=== PATIENT | female | born 1975 | race Caucasian/White ===

== ENCOUNTER 2021-11-21 14:42 | Outpatient (REF) | payer OTHER, SELFPAY ==
--- NOTE | ~2021-11-21 | XR_ITS ---
EXAMINATION: XR ANKLE, RIGHT CLINICAL INFORMATION: Pain joints right ankle and foot. COMPARISON: Radiographs right foot 11/19/2016 TECHNIQUE: AP, lateral, and mortise views of the right ankle. FINDINGS: There is no fracture or dislocation or destructive process. The malleoli are intact and the ankle mortise is symmetric. There is no joint narrowing or erosive change. No osteochondral lesion demonstrated talar dome. The subtalar joint appears normal. The retrocalcaneal recess is preserved. XR/XR ankle RT min 3V IMPRESSION: Normal right ankle.
== END 2021-11-21 14:43 | disposition home or self-care (01) ==
LOC: HO.XRAY 14:42
PROVIDERS: PCP Internal Medicine; Visit Provider Student in an Organized Health Care Education/Training Program
DX: M25.571 Pain in right ankle and joints of right foot (principal)
CPT/HCPCS: 73610

== ENCOUNTER 2021-11-26 14:51 | Outpatient (REF) | payer OTHER, SELFPAY ==
--- NOTE | ~2021-11-26 | XR_ITS ---
EXAMINATION: XR CERVICAL SPINE CLINICAL INFORMATION: Degenerative disc disease COMPARISON: None TECHNIQUE: 5 views of the cervical spine were obtained. FINDINGS: There is mild 3 mm anterior subluxation of C3 with respect to C4. Bone alignment is otherwise normal. No fracture or dislocation is seen. There is degenerative spondylosis and degenerative disc disease at C5-C6 and C6-C7. There is right-sided neuroforaminal narrowing from bony osteophyte at C3-C5-C6. There is mild left-sided neuroforaminal narrowing from bony osteophyte at C3-C4 and C5-C6. Prevertebral soft tissues are normal. XR/XR cervical spine 4V IMPRESSION: Degenerative changes.
== END 2021-11-26 14:52 | disposition home or self-care (01) ==
LOC: HO.XRAY 14:51
PROVIDERS: PCP Internal Medicine; Visit Provider Student in an Organized Health Care Education/Training Program
DX: M50.30 Other cervical disc degeneration, unspecified cervical region (principal)
CPT/HCPCS: 72050

== ENCOUNTER 2022-12-02 15:22 | Outpatient (REF) | payer OTHER, SELFPAY ==
--- NOTE | ~2022-12-02 | XR_ITS ---
EXAMINATION: XR LUMBOSACRAL SPINE CLINICAL INFORMATION: Lower back pain. COMPARISON: None TECHNIQUE: AP and lateral views of the lumbar spine and lateral view of the lumbosacral junction. FINDINGS: The vertebral bodies and posterior elements are normal. The disc spaces are preserved and the vertebral alignment is normal. There is mild anterior spondylosis of the L4 and L5 upper endplates. A tiny limbus vertebra is seen anterior to the L5 upper endplate. The paraspinal soft tissues are normal. XR/XR lumbar spine 2-3V IMPRESSION: 1. No acute fracture or spondylolisthesis is seen. 2 the lumbar disc spaces are well-maintained. 3. There is mild anterior spondylosis of the L4 and L5 upper endplates.
== END 2022-12-02 15:23 | disposition home or self-care (01) ==
LOC: HO.XRAY 15:22
PROVIDERS: PCP Internal Medicine; Visit Provider Physical Medicine & Rehabilitation
DX: M54.50 Low back pain, unspecified (principal)
CPT/HCPCS: 72100

== ENCOUNTER 2022-12-12 17:58 | Outpatient (REF) | payer OTHER, SELFPAY ==
--- NOTE | ~2022-12-12 | MR_ITS ---
EXAMINATION: MR ANKLE WITHOUT CONTRAST, RIGHT CLINICAL INFORMATION: Right ankle pain. Tendinitis. COMPARISON: Most recent right ankle radiographs dated 11/21/2021. TECHNIQUE: Multisequence MR imaging of the right ankle was obtained without contrast on a high-field strength scanner. FINDINGS: BONE AND ARTICULAR CARTILAGE: No abnormal marrow signal. No evidence of acute osseous injury. No fracture or dislocation. No talar osteochondral lesion. Intact articular cartilage. ACHILLES TENDON: Trace fluid within the retrocalcaneal bursa, consistent with minimal bursitis. Minimal adjacent soft tissue edema, consistent with minimal peritendinitis. No measurable tendon tear. OTHER TENDONS: Intact. LIGAMENTS: Increased T2 signal within the deltoid ligament consistent with a grade 1 sprain/partial tear. JOINT FLUID AND SOFT TISSUES: Unremarkable. PLANTAR FASCIA: Intact. SINUS TARSI AND TARSAL TUNNEL: Patent. MR/MR ankle RT wo con IMPRESSION: 1. Minimal retrocalcaneal bursitis and minimal distal Achilles peritendinitis. No measurable tendon tear. 2. Grade 1 sprain/partial tear of the deltoid ligament. 3. No acute osseous abnormality.
== END 2022-12-12 17:59 | disposition home or self-care (01) ==
LOC: HO.MRI 17:58
PROVIDERS: PCP Internal Medicine; Visit Provider Physical Medicine & Rehabilitation
DX: M76.71 Peroneal tendinitis, right leg (principal)
CPT/HCPCS: 73721

== ENCOUNTER 2023-05-14 17:53 | Outpatient (REF) | payer OTHER, SELFPAY | END 2023-05-14 17:54 | disposition home or self-care (01) | LOC: HO.MRI 17:53 | PROVIDERS: PCP Internal Medicine; Visit Provider Physical Medicine & Rehabilitation | DX: Z13.89 Encounter for screening for other disorder (principal) ==

== ENCOUNTER 2023-10-24 14:52 | Outpatient (REF) | payer OTHER, SELFPAY ==
--- NOTE | ~2023-10-24 | XR_ITS ---
EXAMINATION: XR LUMBOSACRAL SPINE CLINICAL INFORMATION: Lumbar spondylosis without myelopathy. COMPARISON: Radiographs dated 12/02/2022. TECHNIQUE: AP and lateral views of the lumbar spine and lateral view of the lumbosacral junction. FINDINGS: Vertebral body heights and alignment are normal. The disc spaces are well-maintained. There is again mild anterior spondylosis of the L4 and L5 upper endplates. The present lateral views are somewhat limited by overlapping bowel contents. No fracture or dislocation is seen. The posterior elements are intact. The paravertebral soft tissues are unremarkable. XR/XR lumbar spine 2-3V IMPRESSION: 1. No acute fracture or spondylolisthesis is seen. 2. The lumbar disc spaces are well-maintained. 3. Again, there is mild anterior spondylosis of the L4 and L5 upper endplates.
== END 2023-10-24 14:53 | disposition home or self-care (01) ==
LOC: HO.XRAY 14:52
PROVIDERS: Visit Provider Physical Medicine & Rehabilitation
DX: M47.816 Spondylosis without myelopathy or radiculopathy, lumbar region (principal)
CPT/HCPCS: 72100

== ENCOUNTER 2024-07-22 14:24 | Outpatient (AMB) | payer OTHER, SELFPAY ==
--- NOTE | 2024-07-22 14:33 | A.OFFVIS_ITS ---
Vital Signs 07/22/24 14:38 Height 5 ft 8 in Weight 130 lb BMI 19.8 BP 116/68 Blood Pressure Location Rt brachial Position Sitting Pulse 101 H Pulse Source Pulse Oximeter Pulse Oximetry (%) 98 Oxygen Delivery Method Room Air Intake Visit Reasons: Chronic Right Ankle Pain Intake Note: Pain today 5/10 Medical Records Coordinator Required: No Accompanied by: Self / Same As Patient Allergies No Known Allergies Allergy (Verified 07/22/24 14:38) HPI HPI Chronic Right Ankle Pain: Details: Patient is a pleasant 49 years old female presents today for initial evaluation for chronic right ankle pain. She has long history of chronic neck, back, wrist and ankle pain and is currently in treatment for this at [facility]. She is interested to discuss treatments in our office for right ankle pain due to tendinitis as this was treated unsuccessfully at [facility] with physical therapy and injections. Patient reports she twisted her ankle in August 2021 which never healed completely. She bumped it a month ago which made it progressively worsening. Pain is localized to posterior, medial and lateral aspects of right ankle with mild swelling, decreased range of motion, mild allodynia, stiffness and soreness. Pain is constant and is rated at 5/10 today but worse with exertion. Patient reports seeing multiple Orthopedic providers, including [facility], [facility] and [facility] and was told no surgery. Patient was last evaluated by Dr. Patrick at [facility]. She was offered Curonix PNS at [facility] but would like to learn new treatments through our office. Patient reports worsening memory issues but has not had Neurology evaluation. She see Psychiatrist at [facility]. Patient reports good social support at home. Location: Right ankle pain Duration: Chronic pain since 09/01/21 Characteristics of symptom or complaint: Aching, dull, sore, hurting, heavy Aggravating or associated factors: Walking, weight bearing, standing, movements, heat applications Relieving factors: Ibuprofen, cold therapy, tramadol, elevation, rest Treatment: PT at [facility], cortisone injection, xrays/MRIs [facility] Medical History (Updated 07/23/24 @ 12:17 by CHRISTOPHER Graham) Other intervertebral disc disorders, lumbar region Mild cognitive impairment of uncertain or unknown etiology Schizophrenia, unspecified Other specified disorders of tendon, right ankle and foot Social History (Updated 07/22/24 @ 14:41 by Teresa Gibbons) Alcohol intake: never Patient Tobacco Use Status: Former Tobacco user Review of Systems Const All systems reviewed & are unremarkable except as noted in HPI and below Physical Exam Vital Signs: Last Vital Signs Pulse 101 H 07/22/24 14:38 BP 116/68 07/22/24 14:38 Pulse Ox 98 07/22/24 14:38 Oxygen Delivery Method Room Air 07/22/24 14:38 BMI result Body Mass Index 19.8 General: Appears afebrile. Alert and oriented. Mood and affect appropriate. Follows and participates in conversation appropriately. Respiratory effort is unlabored. No cough. Able to transition from sit to stand unassisted. Ambulates with bilaterally normal heel strike and toe off. Extrem General: Yes capillary refill normal, Yes no pedal edema, Yes no calf tenderness, No clubbing and No cyanosis Right lower extremity: ankle (Limited ROM due to pain, stiffness. Mild allodynia. ) Details: normal to inspection, tenderness Location: of the lateral malleolus, of the medial malleolus and posteriorly and swelling Details: diffusely; no unusual warmth, no ecchymosis and no crepitus Results Reviewed Results Reviewed: MR ANKLE WITHOUT CONTRAST, RIGHT 12/12/22 CLINICAL INFORMATION: Right ankle pain. Tendinitis. COMPARISON: Most recent right ankle radiographs dated 11/21/2021. TECHNIQUE: Multisequence MR imaging of the right ankle was obtained without contrast on a high-field strength scanner. FINDINGS: BONE AND ARTICULAR CARTILAGE: No abnormal marrow signal. No evidence of acute osseous injury. No fracture or dislocation. No talar osteochondral lesion. Intact articular cartilage. ACHILLES TENDON: Trace fluid within the retrocalcaneal bursa, consistent with minimal bursitis. Minimal adjacent soft tissue edema, consistent with minimal peritendinitis. No measurable tendon tear. OTHER TENDONS: Intact. LIGAMENTS: Increased T2 signal within the deltoid ligament consistent with a grade 1 sprain/partial tear. JOINT FLUID AND SOFT TISSUES: Unremarkable. PLANTAR FASCIA: Intact. SINUS TARSI AND TARSAL TUNNEL: Patent. IMPRESSION: 1. Minimal retrocalcaneal bursitis and minimal distal Achilles peritendinitis. No measurable tendon tear. 2. Grade 1 sprain/partial tear of the deltoid ligament. 3. No acute osseous abnormality. Assessment & Plan Assessment & Plan (1) Other specified disorders of tendon, right ankle and foot: Code(s): M67.873 - Other specified disorders of tendon, right ankle and foot Category: Medical (2) Chronic pain of right ankle: Code(s): M25.571 - Pain in right ankle and joints of right foot; G89.29 - Other chronic pain Category: Medical Plan Discussed interventional treatments for chronic right ankle pain. Patient was last evaluated by Dr. Patrick at [facility], she was told no surgery was needed. I would like to obtain Orthopedic evaluation. Tentatively plan for Diagnostic Right Sciatic Nerve Block with local and [place] guidance for potential Sprint PNS trial. Expectations, risks and benefits were reviewed. Patient was also encouraged to visit Sprint PNS website for more information. Informational pamphlet was provided to patient today. Sprint PNS model was utilized during today's visit for demonstration and learning. Patient encouraged to follow up with Neurology to address concerning memory issues. She reports good social support system at home. Follow with Psychiatry services at [facility]. All questions were answered and the patient is in agreement of plan. Follow-up as needed. Coding Level of Care Code New Pt Level 4 (69268) Complex EM visit Add On G2211 Diagnoses Other specified disorders of tendon, right ankle and foot M67.873 Chronic pain of right ankle M25.571; G89.29
[2024-07-22 14:38] VITALS: BP 116/68; PULSE 101; O2SAT 98; BMI 19.8
== END 2024-07-22 15:12 | disposition home or self-care (01) ==
PROVIDERS: PCP Internal Medicine; Visit Provider Nurse Practitioner Family
DX: M67.873 Other specified disorders of tendon, right ankle and foot (principal); M25.571 Pain in right ankle and joints of right foot; G89.29 Other chronic pain
CPT/HCPCS: 99204; G2211

== ENCOUNTER → 2024-07-22 14:24 | Outpatient (BNVA) | payer OTHER, SELFPAY | PROVIDERS: PCP Internal Medicine; Visit Provider Nurse Practitioner Family | DX: M25.571 Pain in right ankle and joints of right foot (principal); G89.29 Other chronic pain; M67.873 Other specified disorders of tendon, right ankle and foot; G31.84 Mild cognitive impairment of uncertain or unknown etiology | CPT/HCPCS: 99202 ==

== ENCOUNTER 2024-10-14 07:37 | Outpatient (REF) | payer OTHER, SELFPAY | END 2024-10-14 07:38 | disposition home or self-care (01) | LOC: CF 07:37 | PROVIDERS: Visit Provider Internal Medicine | DX: M25.571 Pain in right ankle and joints of right foot (principal); G89.29 Other chronic pain | CPT/HCPCS: 64445; J2795 ==

== ENCOUNTER 2024-10-14 12:05 | Outpatient (AMB) | payer OTHER, SELFPAY ==
[2024-10-14 12:10] VITALS: BP 103/52; PULSE 92; O2SAT 98
--- NOTE | 2024-10-14 12:10 | A.OFFVIS_ITS ---
Vital Signs 10/14/24 12:10 BP 103/52 L Blood Pressure Location Lt brachial Position Sitting Pulse 92 Pulse Source Pulse Oximeter Pulse Oximetry (%) 98 Oxygen Delivery Method Room Air Intake Visit Reasons: Right Dx sciatic NB Allergies No Known Allergies Allergy (Verified 07/22/24 14:38) HPI HPI Right Dx sciatic NB: Details: Patient presents for scheduled procedure. Denies any recent cough, cold, infection, fever or other significant changes in medical history since last office visit. [facility] Medical History (Updated 07/23/24 @ 12:17 by CHRISTOPHER Graham) Other intervertebral disc disorders, lumbar region Mild cognitive impairment of uncertain or unknown etiology Schizophrenia, unspecified Other specified disorders of tendon, right ankle and foot Social History (Updated 07/22/24 @ 14:41 by Teresa Gibbons) Alcohol intake: never Patient Tobacco Use Status: Former Tobacco user Physical Exam Vital Signs: Last Vital Signs Pulse 92 10/14/24 12:10 BP 103/52 L 10/14/24 12:10 Pulse Ox 98 10/14/24 12:10 Oxygen Delivery Method Room Air 10/14/24 12:10 Office Procedures Nerve Block Details: Right sciatic nerve block at the level of the popliteal fossa, ultrasound-guided After obtaining written consent, pre-procedure blood pressure and heart rate were stable and recorded in the nursing record. The patient was placed lateral on the table. The area overlying the popliteal fossa was widely prepped with chloraprep, allowed to dry and sterilely draped. Using ultrasound, the appropriate landmarks including the popliteal artery artery and branches of the sciatic nerve including the tibial and peroneal nerves were identified. A 21 gauge 80 mm echostim needle was advanced under sonographic guidance to the individual tibial and peroneal branches. Aspiration was negative for heme and synovial fluid. 10 cc of ropivacaine 0.1%? was injected around the nerves. The needles were removed, skin cleansed and a sterile bandage was applied. The patient tolerated the procedure well and no complications were encountered. Following the procedure the patient's vital signs and knee strength were stable. The patient was discharged home in good condition with post-procedural instructions. Time Out: Immediately prior to the procedure, the following was verbally confirmed that there is a signed consent form and that the correct patient, planned procedure, site and side are consistent with documentation and that necessary equipment and/or blood products are available prior to the start of the case. Complications: none EBL: <1 cc 92906 - Sciatic Procedure code (CPT) selection complete Assessment & Plan Assessment & Plan (1) Chronic pain of right ankle: Code(s): M25.571 - Pain in right ankle and joints of right foot; G89.29 - Other chronic pain Category: Medical Plan Patient is status post diagnostic right sciatic nerve block at the level of the popliteal fossa. Patient tolerated procedure well and was discharged home in stable condition with discharge instructions. All questions were answered. We will follow-up via telephone or in clinic to assess response to therapy. A follow-up appointment was made during today's visit. Orders: Orders [place] guidance in treatment room Today G89.29 - Other chronic pain, M25.571 - Pain in right ankle and joints of right foot Coding Level of Care Code Procedure Only Diagnoses Chronic pain of right ankle M25.571; G89.29 CPT Codes Nerve Block - Nerve Block 6: 83394 - Sciatic ([id number])
== END 2024-10-14 12:41 | disposition home or self-care (01) ==
LOC: HO.PMCPRC 12:05
PROVIDERS: PCP Internal Medicine; Visit Provider Internal Medicine
DX: M25.571 Pain in right ankle and joints of right foot (principal); G89.29 Other chronic pain
CPT/HCPCS: 64445; 76942

== ENCOUNTER 2024-10-21 10:49 | Outpatient (AMB) | payer OTHER, SELFPAY ==
--- NOTE | 2024-10-21 10:57 | A.OFFVIS_ITS ---
Vital Signs 10/21/24 10:59 Height 5 ft 8 in Weight 144 lb BMI 21.9 BP 111/61 Blood Pressure Location Lt brachial Position Sitting Respiration 15 Pulse 93 Pulse Source Pulse Oximeter Pulse Oximetry (%) 97 Oxygen Delivery Method Room Air Intake Visit Reasons: s/p right Dx sciatic NB Accompanied by: Father Allergies No Known Allergies Allergy (Verified 10/21/24 11:01) Medication List - Last Reconciled 10/21/24 by Taty Lyman LPN clozapine 200 mg PO BEDTIME HPI Comments Details: Patient presents today to assess response to Right Diagnostic Sciatic Nerve Block at the level of popliteal fossa on 10/14/[address] García. Patient reports 80% pain relief for 6 hours with improvement in daily activities and functioning, mobility and sleep. She is interested to proceed with Right sciatic nerve Sprint PNS trial as next steps. Denies any recent cough, cold, infection, fever or any significant changes in medical history since last office visit. Past Procedures: 10/14/24: Right Diagnostic Sciatic Nerve Block-80% pain relief PRIOR: Patient is a pleasant 49 years old female presents today for initial evaluation for chronic right ankle pain. She has long history of chronic neck, back, wrist and ankle pain and is currently in treatment for this at [facility]. She is interested to discuss treatments in our office for right ankle pain due to tendinitis as this was treated unsuccessfully at [facility] with physical therapy and injections. Patient reports she twisted her ankle in August 2021 which never healed completely. She bumped it a month ago which made it progressively worsening. Pain is localized to posterior, medial and lateral aspects of right ankle with mild swelling, decreased range of motion, mild allodynia, stiffness and soreness. Pain is constant and is rated at 5/10 today but worse with exertion. Patient reports seeing multiple Orthopedic providers, including [facility], [facility] and [facility] and was told no surgery. Patient was last evaluated by Dr. Patrick at [facility]. She was offered Curonix PNS at [facility] but would like to learn new treatments through our office. Patient reports worsening memory issues but has not had Neurology evaluation. She see Psychiatrist at [facility]. Patient reports good social support at home. Location: Right ankle pain Duration: Chronic pain since 09/01/21 Characteristics of symptom or complaint: Aching, dull, sore, hurting, heavy Aggravating or associated factors: Walking, weight bearing, standing, movements, heat applications Relieving factors: Ibuprofen, cold therapy, tramadol, elevation, rest Treatment: PT at [facility], cortisone injection, xrays/MRIs [facility] Medical History Other intervertebral disc disorders, lumbar region Mild cognitive impairment of uncertain or unknown etiology Schizophrenia, unspecified Other specified disorders of tendon, right ankle and foot Social History Alcohol intake: never Patient Tobacco Use Status: Former Tobacco user Review of Systems Const All systems reviewed & are unremarkable except as noted in HPI and below Physical Exam Vital Signs: Last Vital Signs Pulse 93 10/21/24 10:59 Resp 15 10/21/24 10:59 BP 111/61 10/21/24 10:59 Pulse Ox 97 10/21/24 10:59 Oxygen Delivery Method Room Air 10/21/24 10:59 BMI result Body Mass Index 21.9 General: Appears afebrile. Alert and oriented. Mood and affect appropriate. Follows and participates in conversation appropriately. Respiratory effort is unlabored. No cough. Able to transition from sit to stand unassisted. Ambulates with bilaterally normal heel strike and toe off. Extrem Right lower extremity: ankle (Limited ROM due to pain.) Details: normal to inspection and tenderness Location: of the lateral malleolus, of the medial malleolus and posteriorly; no swelling, no unusual warmth, no ecchymosis and no crepitus Results Reviewed Results Reviewed: MR ANKLE WITHOUT CONTRAST, RIGHT 12/12/22 CLINICAL INFORMATION: Right ankle pain. Tendinitis. COMPARISON: Most recent right ankle radiographs dated 11/21/2021. TECHNIQUE: Multisequence MR imaging of the right ankle was obtained without contrast on a high-field strength scanner. FINDINGS: BONE AND ARTICULAR CARTILAGE: No abnormal marrow signal. No evidence of acute osseous injury. No fracture or dislocation. No talar osteochondral lesion. Intact articular cartilage. ACHILLES TENDON: Trace fluid within the retrocalcaneal bursa, consistent with minimal bursitis. Minimal adjacent soft tissue edema, consistent with minimal peritendinitis. No measurable tendon tear. OTHER TENDONS: Intact. LIGAMENTS: Increased T2 signal within the deltoid ligament consistent with a grade 1 sprain/partial tear. JOINT FLUID AND SOFT TISSUES: Unremarkable. PLANTAR FASCIA: Intact. SINUS TARSI AND TARSAL TUNNEL: Patent. IMPRESSION: 1. Minimal retrocalcaneal bursitis and minimal distal Achilles peritendinitis. No measurable tendon tear. 2. Grade 1 sprain/partial tear of the deltoid ligament. 3. No acute osseous abnormality. Assessment & Plan Assessment & Plan (1) Other specified disorders of tendon, right ankle and foot: Code(s): M67.873 - Other specified disorders of tendon, right ankle and foot Category: Medical (2) Chronic pain of right ankle: Code(s): M25.571 - Pain in right ankle and joints of right foot; G89.29 - Other chronic pain Category: Medical Plan Patient is one week status post Right Diagnostic Sciatic Nerve Block at the level of popliteal fossa with improvement in daily activities and functioning, mobility and sleep. She is interested to proceed with Right Sciatic Nerve Sprint PNS trial with local and [place] guidance for a longer term bains relief. Expectations, risks and benefits were reviewed with patient and her family. All questions were answered and the patient is in agreement of plan. Follow-up after Sprint placement and sooner as needed. Coding Level of Care Code Est Pt Level 3 (34748) Complex EM visit Add On G2211 Diagnoses Other specified disorders of tendon, right ankle and foot M67.873 Chronic pain of right ankle M25.571; G89.29
[2024-10-21 10:59] VITALS: BP 111/61; PULSE 93; RESP 15; O2SAT 97; BMI 21.9
== END 2024-10-21 11:35 | disposition home or self-care (01) ==
PROVIDERS: PCP Internal Medicine; Visit Provider Nurse Practitioner Family
DX: M67.873 Other specified disorders of tendon, right ankle and foot (principal); M25.571 Pain in right ankle and joints of right foot; G89.29 Other chronic pain
CPT/HCPCS: 99213; G2211

== ENCOUNTER → 2024-10-21 10:49 | Outpatient (BNVA) | payer OTHER, SELFPAY | PROVIDERS: PCP Internal Medicine; Visit Provider Nurse Practitioner Family | DX: M67.873 Other specified disorders of tendon, right ankle and foot (principal); M25.571 Pain in right ankle and joints of right foot; G89.29 Other chronic pain | CPT/HCPCS: 99212 ==